=== PATIENT | male | born 1955 | race African-American/Black ===

== ENCOUNTER 2019-04-03 06:04 | Emergency (ER) | payer SELFPAY ==
[~2019-04-03] VITALS: Ht 182.9 cm; Wt 95.3 kg
[2019-04-03] MEDS ORDERED: ALBUTEROL2.5 MG/3 M INH (06:14)
[2019-04-03] MEDS ORDERED: Albuterol ud Inhalation HHN ONE ×2 (06:15→08:15)
[2019-04-03] MEDS ORDERED: Solu-MEDROL 125mg Inj IVP ONE (06:15)
[2019-04-03] MEDS ORDERED: Ipratropium 0.02% Inh Soln 2.5ml UD HHN ONE (06:15)
--- NOTE | 2019-04-03 06:15 | NUR ---
ED Nurse Note: pt presents to ED c/o SOB and dyspnea that he has had chronically but it worsened this AM. pt reports a cough but nothing comes up. per pt it feels like "there is something there." pt denies having an albuterol inhaler at home and states that prednisone is usually what helps him. on auscultation, pt has diminished breath sounds bilaterally. pt does not c/o any other symptoms at this time.
[2019-04-03] MEDS ORDERED: PREDNISONE20 MG ORAL (06:19)
[2019-04-03] MEDS ORDERED: COMBIVENT RESPIM4 GM IH (06:19)
[2019-04-03] MEDS ORDERED: ALBUTEROL2.5 MG/3 M HHN (06:19)
--- NOTE | 2019-04-03 06:19 | Emergency Room Report ---
History of Present Illness General Chief Complaint: Dyspnea/Respdistress Source: Patient (Tru Fairchild MD) Present Illness HPI This is a 64-year-old male who has a history of COPD but still smokes about three quarters a pack a day. He presents with chief plan shortness of breath and cough. This is an ongoing problem but he "got tired of it" tonight and called 911. He said that his [employer] was cut off in April. He was using Combivent and that was helping. The only thing he is using now is Atrovent nebulizer. He said is not helping at all. He denies any fever chills but no nausea no vomiting. Coughing is worse than last few days. Coughing is productive of phlegm. No chest pain. Worse with exertion. Better with rest. Still able to smoke. He recently got his Medicare card beginning of the month so decided to come to the hospital. (Tru Fairchild MD) Allergies: Coded Allergies: No Known Allergies (Unverified , 04/03/19) Patient History Past Medical History: see triage record, old chart reviewed, COPD Past Surgical History: other Pertinent Family History: none Social History: Reports: smoking Immunizations: other Reviewed Nursing Documentation: PMH: Agreed; PSxH: Agreed (Tru Fairchild MD) Nursing Documentation-PMH Hx COPD: Yes (Tru Fairchild MD) Review of Systems Eye: Denies: eye pain, blurred vision ENT: Denies: ear pain, nose congestion, throat swelling Respiratory: Reports: cough, shortness of breath Cardiovascular: Denies: chest pain, palpitations Gastrointestinal: Denies: abdominal pain, diarrhea, nausea, vomiting Musculoskeletal: Denies: back pain, joint pain Skin: Denies: rash Neurological: Denies: headache, numbness Endocrine: Denies: increased thirst, increased urine Hematologic/Lymphatic: Denies: easy bruising All Other Systems: negative except mentioned in HPI (Tru Fairchild MD) Physical Exam Vital Signs Date Time Temp Pulse Resp B/P (MAP) Pulse Ox O2 Delivery O2 Flow Rate FiO2 04/03/19 06:05 98.1 96 20 140/90 (107) 97 Room Air Vitals normal Sp02 EP Interpretation: reviewed, normal General Appearance: well appearing, no apparent distress, alert Head: normocephalic, atraumatic Eyes: bilateral eye PERRL, bilateral eye EOMI ENT: hearing grossly normal, normal pharynx Neck: full range of motion, supple, no meningismus Respiratory: chest non-tender, decreased breath sounds, accessory muscle use, other - Mildly dyspneic Cardiovascular #1: regular rate, rhythm, no murmur Gastrointestinal: normal bowel sounds, non tender, no mass, no organomegaly, no bruit, non-distended Musculoskeletal: back normal, normal range of motion, gait/station normal Psychiatric: mood/affect normal (Tru Fairchild MD) Medical Decision Making Diagnostic Impression: Primary Impression: COPD with acute exacerbation ER Course Patient with COPD exacerbation. He looks well but in now distress. Breathing treatment ordered. Steroid be given. With his age, will do labs and x-ray and rule out cardiac cause. In laboratory data x-rays are normal, may be discharged home. I will sign out to Dr. Llanes for final disposition. (Tru Fairchild MD) ER Course This patient was signed out to me by Dr. Fairchild. Patient presents with COPD exacerbation. The patient was pending labs. These are unremarkable. The patient was also pending a chest x-ray, which did show a slight opacity in the left lingula. In addition to the albuterol, Atrovent and prednisone I will add a course of antibiotics. Overall, the patient is well-appearing and nontoxic without respiratory distress. Lungs are clear at discharge. Patient is given close return precautions and follow-up instructions. Laboratory Tests Test 04/03/19 06:19 White Blood Count 5.9 K/UL (4.8-10.8) Red Blood Count 4.81 M/UL (4.70-6.10) Hemoglobin 13.7 G/DL (14.2-18.0) L Hematocrit 41.0 % (42.0-52.0) L Mean Corpuscular Volume 85 FL (80-99) Mean Corpuscular Hemoglobin 28.5 PG (27.0-31.0) Mean Corpuscular Hemoglobin Concent 33.4 G/DL (32.0-36.0) Red Cell Distribution Width 15.3 % (11.6-14.8) H Platelet Count 157 K/UL (150-450) Mean Platelet Volume 5.0 FL (6.5-10.1) L Neutrophils (%) (Auto) 43.9 % (45.0-75.0) L Lymphocytes (%) (Auto) 38.5 % (20.0-45.0) Monocytes (%) (Auto) 13.0 % (1.0-10.0) H Eosinophils (%) (Auto) 3.6 % (0.0-3.0) H Basophils (%) (Auto) 1.1 % (0.0-2.0) Sodium Level 139 MMOL/L (136-145) Potassium Level 4.2 MMOL/L (3.5-5.1) Chloride Level 107 MMOL/L (98-107) Carbon Dioxide Level 22 MMOL/L (21-32) Anion Gap 11 mmol/L (5-15) Blood Urea Nitrogen 13 mg/dL (7-18) Creatinine 1.0 MG/DL (0.55-1.30) Estimate Glomerular Filtration Rate > 60 mL/min (>60) Glucose Level 114 MG/DL (74-106) H Calcium Level 8.2 MG/DL (8.5-10.1) L Total Bilirubin 0.4 MG/DL (0.2-1.0) Aspartate Amino Transferase (AST) 47 U/L (15-37) H Alanine Aminotransferase (ALT) 49 U/L (12-78) Alkaline Phosphatase 75 U/L (46-116) Troponin I 0.000 ng/mL (0.000-0.056) Total Protein 7.7 G/DL (6.4-8.2) Albumin 3.5 G/DL (3.4-5.0) Globulin 4.2 g/dL Albumin/Globulin Ratio 0.8 (1.0-2.7) L ([facility]) EKG Diagnostic Results Rate: normal Rhythm: NSR ST Segments: other - RBBB (Tru Fairchild MD) Rhythm Strip Diag. Results EP Interpretation: yes Rate: 85 Rhythm: NSR, no PVC's, no ectopy (Tru Fairchild MD) Chest X-Ray Diagnostic Results Chest X-Ray Diagnostic Results : Chest X-Ray Ordered: Yes # of Views/Limited/Complete: 1 View Indication: Other EP Interpretation: Yes Interpretation: other - Small opacity in L. lingula Impression: Other - See above. Electronically Signed by: Aimee Llanes DO (Aimee Llanes DO) Last Vital Signs Date Time Temp Pulse Resp B/P (MAP) Pulse Ox O2 Delivery O2 Flow Rate FiO2 04/03/19 06:05 98.1 96 20 140/90 (107) 97 Room Air Status: improved (Tru Fairchild MD) Disposition: HOME, SELF-CARE Condition: Stable Scripts Albuterol Sulfate* (ALBUTEROL SULFATE HHN*) 2.5 Mg/3 Ml Vial.neb 2.5 MG HHN Q4H PRN for Shortness of Breath, #25 VIAL Prov: Tru Fairchild MD 04/03/19 Prednisone* (PREDNISONE*) 20 Mg Tablet 40 MG ORAL DAILY, #10 TAB Prov: Tru Fairchild MD 04/03/19 Ipratropium/Albuterol Sulfate (Combivent Respimat Inhal [place]) 4 Gm Mist.inhal 2 PUFFS IH Q4HR for sob, #1 GM Prov: Tru Fairchild MD 04/03/19 Patient Instructions: Chronic Obstructive Pulmonary Disease Exacerbation Additional Instructions: Stop smoking. Follow-up with your doctor in 7 days. Return if symptoms worsen. Tru Fairchild MD Apr 03, 2019 06:19 Aimee Llanes DO Apr 03, 2019 07:57
[2019-04-03 06:24] VITALS: BP 140/90
[2019-04-03 06:34] LABS: BASOPHILS % (AUTO) 1.1 % (0.0-2.0); EOSINOPHILS % (AUTO) 3.6 % (0.0-3.0); HEMOGLOBIN 13.7 G/DL (14.2-18.0); LYMPHOCYTES % (AUTO) 38.5 % (20.0-45.0); MEAN CORPUSCULAR VOLUME 85 FL (80-99); NEUTROPHILS % (AUTO) 43.9 % (45.0-75.0); PLATELET COUNT 157 K/UL (150-450); RED BLOOD COUNT 4.81 M/UL (4.70-6.10); RED CELL DISTRIBUTION WIDTH 15.3 % (11.6-14.8); WHITE BLOOD COUNT 5.9 K/UL (4.8-10.8)
[2019-04-03 06:41] LABS: ANION GAP 11 mmol/L (5-15); BLOOD UREA NITROGEN 13 mg/dL (7-18); CALCIUM 8.2 MG/DL (8.5-10.1); CARBON DIOXIDE 22 MMOL/L (21-32); CHLORIDE 107 MMOL/L (98-107); POTASSIUM 4.2 MMOL/L (3.5-5.1); SODIUM 139 MMOL/L (136-145)
[2019-04-03 06:46] LABS: ALANINE AMINOTRANSFERASE 49 U/L (12-78); ALBUMIN 3.5 G/DL (3.4-5.0); ALBUMIN/GLOBULIN RATIO 0.8 (1.0-2.7); ALKALINE PHOSPHATASE 75 U/L (46-116); ASPARTATE AMINO TRANSFERASE 47 U/L (15-37); BILIRUBIN,TOTAL 0.4 MG/DL (0.2-1.0)
--- NOTE | 2019-04-03 07:02 | NUR ---
Note edouard in EDM - 04/03/19 at 0750 by JOANN ED Nurse Note: Pt recieved in stable condition, sleeping in bed.
[2019-04-03 07:05] VITALS: BP 143/93
--- NOTE | 2019-04-03 07:09 | NUR ---
HAND-OFF: Report given to TRINITY Durán.
--- NOTE | 2019-04-03 07:10 | NUR ---
ED Nurse Note: Pt recieved in stable condition sleeping in bed.
[2019-04-03] MEDS ORDERED: ZITHROMAX250 MG ORAL (07:58)
--- NOTE | 2019-04-03 08:05 | NUR ---
ED Nurse Note: RT arrived at bedside to administer breathing tx for pt due to pt reports trouble breathing.
--- NOTE | 2019-04-03 08:31 | NUR ---
ED Nurse Note: RT left bedside. Pt reports improved ability to breathe. Pt sleeping in bed.
[2019-04-03 09:00] VITALS: BP 154/86
--- NOTE | 2019-04-03 09:01 | NUR ---
ED Nurse Note: Patient is being discharged from medical care. Patient awake, alert, oriented x 4. Regular, unlabored breathing noted. Patient reports improved breathing at this time. D/C instruction and prescription given to patient. Patient verbalized understanding of it. Patient ambulated out with steady gait with all his belongings.
--- NOTE | 2019-04-03 11:29 | Diagnostic Imaging Report ---
Indication: Shortness of breath for one day Technique: One view of the chest Comparison: none Findings: There is some atelectasis at the left lung base. Lungs pleural spaces are otherwise clear. The heart size is normal Impression: Left basilar atelectasis. No acute process otherwise
--- NOTE | 2019-04-04 13:45 | Cardiology Report ---
APPROVED REPORT EKG Measurement Heart [id number] Normal sinus rhythm Right bundle branch block Abnormal ECG
== END 2019-04-03 09:00 | disposition home or self-care (01) ==
LOC: EDUNIT# 06:04 → EDBD 06:04 → EMR 06:15
DX: J44.1 Chronic obstructive pulmonary disease with (acute) exacerbation (principal); F17.200 Nicotine dependence, unspecified, uncomplicated
CPT/HCPCS: 36415; 71045; 80053; 84484; 85025; 93005; 96374; 99284; J2930